=== PATIENT | female | born 1965 | race Caucasian/White ===

== ENCOUNTER 2022-08-04 09:48 | Emergency (ER) | payer BC, SELFPAY ==
[2022-08-04 09:55] VITALS: BP 135/76; PULSE 97; RESP 18; O2SAT 97; BMI 26.3
--- NOTE | 2022-08-04 10:13 | CRLHL7_ITS ---
For Patients: As a result of the Century Cures Act, medical imaging exams and procedure reports are released immediately into your electronic medical record. You may view this report before your referring provider. If you have questions, please contact your health care provider. INDICATION: Left lower quadrant abdomen and flank pain. TECHNIQUE: CT abdomen and pelvis acquired with 64 cc Isovue 370 IV contrast. COMPARISON: None. FINDINGS: Lower chest: Unremarkable. Liver: Unremarkable. Normal in size and attenuation. No suspicious masses. Gallbladder and bile ducts: Unremarkable. No stones or inflammation. No biliary dilatation. Pancreas: Unremarkable. No mass or inflammation. Spleen: Unremarkable. Normal in size. No masses. Adrenal glands: Unremarkable. No nodules. Kidneys: Staghorn calculus is present in the left renal collecting system. Left kidney is somewhat atrophic with cortical thinning, caliectasis and there is a delayed nephrogram in the left kidney. These findings are likely secondary to the chronic calculus. Right kidney is unremarkable. GI tract: Unremarkable. Normal in caliber. No sign of mass or inflammation. Vasculature: Abdominal aorta is normal in caliber. Mesenteric arteries are patent. Lymph nodes: Multiple mildly enlarged retroperitoneal lymph nodes at the level of the left kidney. No lymphadenopathy elsewhere. Peritoneum/Abdominal Wall: Unremarkable. No sign of mass or infiltration. No free air or significant free fluid. Pelvis: Unremarkable. Bones: Unremarkable for age. IMPRESSION: 1. Staghorn calculus in the left renal collecting system resulting in a delayed nephrogram and caliectasis which may be acute or chronic findings. No convincing evidence for pyelonephritis. Urology consultation recommended for management of this finding. 2. Mild left retroperitoneal lymphadenopathy at the level of the left kidney. This is of uncertain etiology and significance. 3. Remainder of exam is unremarkable. No other finding to explain left-sided abdomen or back pain. Please note that all CT scans at this facility use dose modulation, iterative reconstruction, and/or weight-based dosing when appropriate to reduce radiation dose to as low as reasonably achievable. Dictated by Lj Baez MD @ 08/04/2022 11:39:42 AM (Electronically Signed)
--- NOTE | 2022-08-04 10:15 | ED_ITS ---
HPI - General Adult General Chief complaint: Flank Pain Stated complaint: Mid/upper back pain Time Seen by Provider: 08/04/22 09:58 History of Present Illness HPI narrative: This 56-year-old female comes in reporting midback pain that was severe last evening. She has also had left lower quadrant abdominal pain on and off over the past month. She states that she had some chills but did not measure her temperature. She arrives here with normal vital signs. She states that the pain in her abdomen and back comes and goes. She does not report any symptoms of altered bowel function. She states that she has had a urinary tract infection in the past and wonders if this may explain her current symptoms. She is also had an ovarian cyst in the past. Related Data Allergies Allergy/AdvReac Type Severity Reaction Status Date / Time acetaminophen [From Vicodin] Allergy Verified 08/04/22 09:54 hydrocodone [From Vicodin] Allergy Verified 08/04/22 09:54 Review of Systems Status of ROS: Reports: 10 or more systems reviewed and unremarkable except as noted in History and below Narrative: Constitutional: No fevers, no weight gain or loss. Eyes: No discharge. No vision changes. HENT: No congestion, no sore throat, no ear pain. Cardiovascular: No chest pain, no palpitations. Respiratory: No shortness of breath, no wheezes, no cough. Gastrointestinal: No vomiting, no diarrhea. Left lower quadrant abdominal pain. Genitourinary: No dysuria, no hematuria. Musculoskeletal: Normal range of motion. Skin: No rashes, no pruritis. Neurological: No dizziness, weakness, sensory change, speech change. Endo/Heme/Allergies: No bruising or bleeding. No polydipsia. Pysch: no suicidality, no anxiety, no insomnia. All other systems reviewed and are negative. PFSH PFS Social History Smoking Status: Smoker, status unknown Do you use any of these nicotine containing products: None Second hand tobacco smoke exposure: No How often do you have a drink containing alcohol: monthly or less How many standard drinks containing alcohol do you have on a typical day: 1 or 2 How often do you have six or more drinks on one occasion: Never AUDIT-C Alcohol total score: 1 Non-prescribed substance use: marijuana (any form) Non-prescribed substance use details: medical cannabis service: No Exam Narrative: Exam Narrative: Constitutional: Well-developed, well-nourished, no acute distress. HEENT: Normocephalic, atraumatic. Neck: Normal range of motion. Nontender. Supple. Heart: Regular. No murmurs. Normal rate. Intact distal pulses. Lungs: Clear to auscultation. No chest discomfort. No wheezes, rhonchi, or rales. Abdomen: Normal bowel sounds. Nontende to deep palpation. She does report pain in the left lower quadrant. No rebound tenderness. Genitalia: Deferred. Back: No midline tenderness. Normal range of motion. Extremities: Normal range of motion. No injury. Skin: Intact. No rash. Warm. No erythema or pallor. Neurologic: No altered sensation. No weakness. Alert and oriented. Psychiatric: No suicidality. No anxiety or depression. No insomnia. Nursing notes and vitals signs are reviewed. Const: Vital Signs, click to edit/add: Vital Signs - 24 hr 08/04/22 09:55 Pulse Rate [Pulse Oximeter] 97 Respiratory Rate 18 Blood Pressure [Ri ght Upper Arm] 135/76 Pulse Oximetry 97 Oxygen Delivery Me thod Room Air Course Vital Signs Vital signs: Initial Vital Signs Temperature Source Temporal Artery Scan 08/04/22 09:55 Pulse Rate 97 08/04/22 09:55 Respiratory Rate 18 08/04/22 09:55 Blood Pressure 135/76 08/04/22 09:55 Blood Pressure Mean 95 08/04/22 09:55 Blood Pressure Position Supine 08/04/22 09:55 Pulse Oximetry 97 08/04/22 09:55 Oxygen Delivery Method 08/04/22 09:55 Vital Signs Pulse Rate 97 08/04/22 09:55 Respiratory Rate 18 08/04/22 09:55 Blood Pressure 135/76 08/04/22 09:55 Pulse Oximetry 97 08/04/22 09:55 Oxygen Delivery Method 08/04/22 09:55 Pulse Rate 97 08/04/22 09:55 Respiratory Rate 18 08/04/22 09:55 Blood Pressure 135/76 08/04/22 09:55 Pulse Oximetry 97 08/04/22 09:55 Oxygen Delivery Method 08/04/22 09:55 Medical Decision Making MDM Narrative Medical decision making narrative: This patient comes in with left flank pain as described above. An IV is established where she did receive 30 mg of Toradol. Labs were drawn and urinalysis acquired. CT imaging of the abdomen and pelvis shows a large staghorn calculus in the left kidney. There are no other findings on the images that are remarkable. She has normal blood results but does show obvious findings of urinary tract infection. She received a prescription for Keflex, Toradol, and a few tablets of Percocet. She states that she is taking Percocet regularly for her chronic pain issue but has accelerated taking these a bit over the past few days with these current symptoms. I stated that she will need to have that managed by her primary physician. Radiologist recommends follow-up with urology clinic. A phone number is provided for this to occur. Lab Data Labs: Lab Results 08/04/22 08/04/22 08/04/22 Range/Units 10:35 10:35 11:00 WBC 8.55 (4.50-11.00) K/uL RBC 4.21 (4.00-5.20) m/uL Hgb 11.1 L (12.0-16.0) gm/dL Hct 34.0 (33.0-51.0) % MCV 81 (80-100) fL MCH 26 (26-34) pg MCHC 33 (32-36) gm/dL RDW Coeff of Kathryn 13.3 (11.5-15.5) % Plt Count 328 (140-440) K/uL Neut % (Auto) 81.8 H (42.0-72.0) % Lymph % (Auto) 10.4 L (20-44) % [place] % (Auto) 6.7 (0.0-11.0) % Eos % (Auto) 0.2 (0.0-7.0) % Baso % (Auto) 0.5 (0.0-3.0) % Neut # (Auto) 7.00 (1.7-7.0) K/uL Lymph # (Auto) 0.90 (0.90-2.90) K/uL [place] # (Auto) 0.60 (0.00-0.90) K/UL Eos # (Auto) 0.02 (0.00-0.50) K/uL Baso # (Auto) 0.04 (0.00-0.30) K/uL Abs Immat Gran (auto) 0.03 (0.00-0.30) K/uL Sodium 134 L (135-149) mmol/L Potassium 4.4 (3.6-5.1) mmol/L Chloride 100 (96-114) mmol/L Carbon Dioxide 25 (20-32) mmol/L BUN 14 (7-30) mg/dL Creatinine 0.8 (0.5-1.5) mg/dL Estimated Creat Clear 74.83 Estimated GFR 88 ml/min Glucose 107 (60-115) mg/dL Calcium 9.4 (8.4-10.6) mg/dL Urine Color Yellow (Yellow) Urine Appearance Slightly Cloudy A (Clear) Urine pH 7.0 (5.0-8.5) Ur Specific [place] 1.010 (1.000-1.030) Urine Protein Trace A (Negative) Urine Glucose (UA) Negative (Negative) Urine Ketones Negative (Negative) Urine Blood 2+ A (Negative) Urine Nitrite Negative (Negative) Urine Bilirubin Negative (Negative) Urine Urobilinogen 0.2 (0.2-1.0) Ur Leukocyte Esterase 3+ A (Negative) Urine RBC 10-25 A (0-2) Urine WBC >100 A (0-5) Ur Squamous Epith Cells None (None-Few) Urine Bacteria Few A (None) Imaging Data CT scan - abdomen: Radiologist's impression: 1. Staghorn calculus in the left renal collecting system resulting in a delayed nephrogram and caliectasis which may be acute or chronic findings. No convincing evidence for pyelonephritis. Urology consultation recommended for management of this finding. 2. Mild left retroperitoneal lymphadenopathy at the level of the left kidney. This is of uncertain etiology and significance. 3. Remainder of exam is unremarkable. No other finding to explain left-sided abdomen or back pain. Discharge Plan Discharge Clinical Impression: Urinary tract infection, Staghorn calculus Patient Disposition: Home, Self-Care Condition: Stable Additional Instructions: Take medication as prescribed. Follow-up with urology clinic. [facility] at [phone] for follow up appointment. Follow Up/Referrals: Provider,Not a Local [Referring] - Stand Alone Forms: [employer] Info Instructions
--- OUTSIDE RECORDS SUMMARY | 2022-08-04 10:29 | XMS_ITS | Clinical Summary ---
:1965 Author Organization [facility] [place] [address] Care Team Providers Name Role Phone Jennifer Romano Primary Care Provider [phone] Lili Gaytan MD Unavailable Allergies Active Allergy Reactions Severity Noted Date Comments Meclizine 09/17/2007 scalp tingling Etanercept Rash 08/15/2010 Leg swelling. Hydrocodone-Acetaminophen 2007 na usea/vomiting Medications Medication Sig Dispensed Refills Start Date End Date Status tacrolimus 0.03% Apply topically 1 Tube 0 03/11/2016 Active (PROTOPIC) 0.03 % to affected ointmentIndications: area(s) 2 times Psoriasis daily. oxyCODONE-acetaminoph Take 1 tablet by 0 07/03/2019 Active en, 10-325 mg, mouth every 6 (PERCOCET) 10-325 mg hours if needed per tablet for Pain tiZANidine (ZANAFLEX) 1 tablet every 8 0 10/28/2019 Active 4 mg tablet hours if needed. Lysine 1,000 mg Take 1,000 mg by 0 Active tablet mouth once daily. desonide 0.05% Apply topically 60 g 1 05/01/2020 Active (TRIDESILON 0.05% to affected CREAM) 0.05 % area(s) 2 times creamIndications: daily. Psoriasis celecoxib (CELEBREX) Take 1 Capsule 180 capsule. 2 11/19/2021 Active 200 mg (200 mg) by mouth capsuleIndications: 2 times daily Arthralgia, with meals. unspecified joint valACYclovir Take 1 tablet 20 Tablet 2 01/24/2022 Ac tive (VALTREX) 1 gram twice daily x 2 tabletIndications: days for cold Cold sore sore outbreak secukinumab (Cosentyx Inject 1 mL (150 3 mL 1 03/04/2022 Active Pen) 150 mg/mL mg) subcutaneous penIndications: every 4 weeks. Ankylosing spondylitis of multiple sites in spine (HC), Psoriasis oxybutynin XL TAKE 2 TABLETS 180 Tablet 3 04/15/2022 Active (DITROPAN XL) 10 mg ONCE DAILY CR tabletIndications: Mixed stress and urge urinary incontinence sertraline (ZOLOFT) TAKE ONE AND 135 Tablet 1 04/15/2022 Active 100 mg ONE-HALF TABLETS tabletIndications: EVERY MORNING Anxiety omeprazole (PRILOSEC) TAKE 1 CAPSULE 90 Capsule 2 04/15/2022 Active 20 mg Delayed-Release DAILY BEFORE A capsuleIndications: MEAL Gastroesophageal reflux disease with esophagitis without hemorrhage cyclobenzaprine Take 1 Tablet (10 20 Tablet 0 04/26/2022 Active (FLEXERIL) 10 mg mg) by mouth 2 tabletIndications: times daily if Muscle cramp needed for Muscle Spasm. Active Problems Problem Noted Date Special screening for malignant neoplasms, colon 12/06 Medical cannabis use 01/19/2017 Female sexual dysfunction 01/21/2013 Pain medication agreement 09/06/2012 Tension headache 07/02/2010 Myopia 02/23/2010 Encounter for long-term (current) use of high-risk med ication 11/27/2009 Melanoma in situ of torso excluding breast 10/03/2007 Ankylosing spondylitis 09/17/2007 Other psoriasis 09/17/2007 Overview: head Reflux esophagitis 09/17/2007 Encounters Date Type Specialty Care Team Description 06/20/2022 Telephone Lili Gaytan MD Prior Authorization (secukinumab (C osentyx Pen) 150 mg/mL pen Appro ryanne 05/21/2022-06/09) from Last 3 Months Immunizations Name Administration Dates Next Due AMB Influenza, IIV3 (Age >=3 08/30/2013 years)(Flu Clinic Only) COVID-19 vaccine ([employer] 01/31/2022 30mcg/0.3mL) 12YO+ MARU-SUCROSE PF, MDV COVID-19 vaccine ([employer] 02/04/2021, 01/14/2021 30mcg/0.3mL) PF, MDV Hepatitis A (Adult) 04/16/2009, 10/15/2008 Influenza, IIV3 (Age >=3 years) 08/30/2013, 07/30/2010, 02/2009, 08/25/2008 Influenza, IIV4 07/03/2019, 07/18/2018, 08/15/2016, 06/17/2015 Influenza,CCIIV4 PRESERV FREE 07/01/2020 Pneumococcal Poly,23-Valent 08/25/2008 (Pneumovax) Td (Age >=7 Years) 05/03/2006 Tdap 12/23/2011, 05/03/2006 Tuberculin (PPD) 07/11/2008 Zoster (Shingrix-RZV, recombinant) 03/29/2022, 01/24/2022 Family History Medical History Relation Name Comments Diabetes Father Heart Disease Father at 63 Other Father Blindness from d gregorio Cancer Maternal Grandmother liver--? pr imary Hypertension Mother Thyroid Disease Mother Hypertension Sister Cancer-breast No Family History Relation Name Status Comments Father Maternal Grandmother Mother Sister Social History Tobacco Use Types Packs/Day Years Used Date Former Smoker Quit: 10/09/19 03 Smokeless Tobacco: Never Used Tobacco Cessation: Counseling Given: Yes Alcohol Use Standard Drinks/Week Comments Yes 0 (1 standard drink = 0.6 oz pure alcoho l) Drinks about 4x per year. Alcohol Habits Answer Date Recorded How often do you have a drink containing Not asked alcohol? How many drinks containing alcohol do you Not asked have on a typical day when you are drinking? How often do you have six or more drinks on Not asked one occasion? Comment: Drinks about 4x per year. 12/17/2014 Sex Assigned at Date Recorded Not on file Obstetrics History Para Term AB IAB SAB Ectopic Multiple Living Live Births 3 0 3 3 Date Outcome GA Total Labor/2nd/3rd Weight Sex Delivery Anes PTL Precious A 1 A5 Name Clin Labor SAB SAB SAB Last Filed Vital Signs Vital Sign Reading Time Taken Comments Blood Pressure 125/76 04/15/2022 3:29 PM CDT Pulse 66 04/15/2022 3:29 PM CDT Temperature 37.1 ??C (98.8 ??F) 11/08/2021 3:02 PM LIFE EDUCATOR Respiratory Rate 12 03/25/2022 1:43 PM CDT Oxygen Saturation 97% 04/15/2022 3:29 PM CDT Inhaled Oxygen Concentration - - Weight 59.3 kg (130 lb 12.8 oz) 04/15/2022 3:29 PM CDT Height 150 cm (4' 11.06) 02/16/2022 3:30 PM CDT Body Mass Index 26.37 02/16/2022 3:30 PM CDT Plan of Treatment Upcoming Encounters Date Type Specialty Care Team Description 08/17/2022 Office Visit Jennifer Romano PA [address] [place] 5 [phone] (Wo rk) 09/16/2022 Office Visit Leni Gaytan MD [address] [facility] [address] [place], [place] [address] (Wo rk) Health Maintenance Due Date Last Done Comments Tetanus booster 12/22/2021 12/23/2011, 05/03/2006, 05/03/2006 COVID-19 vaccine series (4 - 03/28/2022 01/31/2022, 021, Booster for Pfizer series) 01/14/2021 Influenza for age 50-64 06/09/2022 07/01/2020, 07/03/2019, 07/18/2018, Additional history exists Depression screening for age 12+ 11/25/2022 11/25/2021, , 11/08/2021, Additional history exists Mammogram for age 45-75 01/10/2023 01/10/2022, 11/10/2020, 11/06/2019, Additional history exists BMI (ht and wt on same day) for 02/16/2023 02/16/2022, 01/07, age 18+ 11/10/2020, Additional history exists Fecal testing non-DNA 02/19/2023 02/19/2022, 03/06/2019 (FIT,FOBT,iFOBT) for age 45-75 Pap test for age 21-65 11/10/2023 11/10/2020, 08/18/2017, 08/18/2017, Additional history exists Lipids for age 45-75 02/16/2027 02/16/2022, 11/10/2020, 10/06/2017, Additional history exists Tdap Completed 12/23/2011, 05/03/2006 Hepatitis C screening for age Completed 06/18/2021 18-79 Zoster (shingles) series for age Completed 03/29/2022, 50+ Results Not on filefrom Last 3 Months Insurance Payer Benefit Plan / Subscriber ID Effective Dates Phone Addre ss Type Group [employer] [id number] 2021-Pres [address] [place] [address] WC WORKERS [employer] TRAV[employer] [id number] 2020-Prese [address] [place] [address] BLUE CROSS BLUE CROSS OF [id number] 2021-Presen [address] [address] [place] [address] (Work) [id number] Radha Oconnell Workers Comp Self 1965 [id number] [phone] [place], [place] (Work) [id number] Radha Oconnell Motor Vehicle Self 1965 [address] [phone] [place], [place] (Work) [id number] USPS ESCREEN [facility] Employer 10/09/[address] [address] [address] (Home) [place] [phone] [place] [address] x5 (Work) Advance Directives Latest Code Status on File Code Status Date Activated Date Inactivated Comments Full Code 12/06/2019 9:53 AM 12/06/2019 2:49 PM Code Status Discussion: Discussed Full Code 10/03/2014 11:36 AM 10/03/2014 8:07 PM Care Teams Gate Person Relationship Specialty Start Date End Date Jennifer Romano PA PCP - General Family Practice 02/14/[address] [place] [address] Lili Gaytan MD Rheumatology Rheumatology 03/31/17 [address] [facility] [address] [place] [address]
[2022-08-04 10:42] LABS: Basophils Absolute Auto 0.04 K/uL (0.00-0.30); Basophils Percent Auto 0.5 % (0.0-3.0); Eosinophils Absolute Auto 0.02 K/uL (0.00-0.50); Eosinophils Percent Auto 0.2 % (0.0-7.0); Hemoglobin* 11.1 gm/dL (12.0-16.0); Immature Granulocytes Abs Auto 0.03 K/uL (0.00-0.30); Lymphocytes Percent Auto 10.4 % (20-44); Mean Corpuscular HGB Conc 33 gm/dL (32-36); Mean Corpuscular Hemoglobin 26 pg (26-34); Mean Corpuscular Volume 81 fL (80-100); Monocytes Percent Auto 6.7 % (0.0-11.0); Neutrophils Percent Auto 81.8 % (42.0-72.0); Platelet Count* 328 K/uL (140-440); RDW Coefficient of Variation % 13.3 % (11.5-15.5); Red Blood Count 4.21 m/uL (4.00-5.20); White Blood Count* 8.55 K/uL (4.50-11.00)
[2022-08-04 10:43] LABS: Slide Review Reflex No
[2022-08-04 10:54] LABS: Chloride* 100 mmol/L (96-114)
[2022-08-04 10:55] LABS: Potassium* 4.4 mmol/L (3.6-5.1); Sodium* 134 mmol/L (135-149)
[2022-08-04 10:57] LABS: Creatinine* 0.8 mg/dL (0.5-1.5); Est. Creatinine Clearance* 74.83; Estimated Glomerular Filt Rate 88 ml/min
[2022-08-04 10:58] LABS: Blood Urea Nitrogen* 14 mg/dL (7-30); Calcium* 9.4 mg/dL (8.4-10.6); Carbon Dioxide* 25 mmol/L (20-32); Glucose* 107 mg/dL (60-115)
[2022-08-04 11:22] LABS: Appearance Urine Slightly Cloudy (Clear); Bilirubin Urine Negative (Negative); Blood Urine 2+ (Negative); Color Urine Yellow (Yellow); Glucose Urine Negative (Negative); Ketones Urine Negative (Negative); Leukocyte Esterase Urine 3+ (Negative); Nitrite Urine Negative (Negative); Protein Urine Trace (Negative); Urobilinogen Urine 0.2 (0.2-1.0)
[2022-08-04] MEDS: KETOROLAC 30 MG/ML inj IVP (11:27)
[2022-08-04 12:07] LABS: WBC Urine >100 (0-5)
[2022-08-04 12:08] LABS: Bacteria Urine Few
[2022-08-04 12:33] VITALS: BP 135/76; PULSE 97; RESP 18; TEMP 36.4
== END 2022-08-04 12:39 | disposition home or self-care (01) ==
PROVIDERS: Emergency Provider Emergency Medicine Emergency Medical Services; PCP Physician Assistant Medical
DX: N39.0 Urinary tract infection, site not specified (principal); N20.0 Calculus of kidney
CPT/HCPCS: 36415; 74177; 80048; 81001; 85025; 87086; 87186; 96374; 99284; 99285; J1885; Q9967

== ENCOUNTER 2022-08-25 09:52 | Outpatient (CLI) | payer BC, SELFPAY ==
--- OUTSIDE RECORDS SUMMARY | 2022-08-25 09:54 | XMS_ITS | Encounter Summary ---
:1965 Author Care Team Providers Name Role Phone Jennifer Juan Antonio BRITT Primary Care Provider [phone] Dom Bellamy MD Referring Provider [phone] Reason for Visit Kidney Stones Assessment and Plan 1. Kidney stone CT from 08/04/22 notable for left stagh orn calculus with renal atrophy/cortical thinning Will have images from [facility] pushed to Alexey QURESHI for review Obtain renogram next to further evaluati on functionality of kidney- discussed she may need PCNL vs nephrectomy based on findings. Will review with MD once renogram is completed. ? urinalysis, dipstick ? NM, kidney scan - LASIX RENOGRAM - pl ease administer Lasix per your standard protocol. ? medical record request* Discussion Note: None recorded.Patient educational handouts: No information available. Plan of Care Reminders Provider Appointments None recorded. ? ? Lab Urinalysis, Dipstick 08/18/2022 [facility] Referral None recorded. ? ? Procedures None recorded. ? ? Surgeries None recorded. ? ? Imaging NM, Kidney Scan 08/18/2022 [facility] Radiology Department Medications Name Start Date ? ? celecoxib 200 mg capsule ? Cosentyx Pen 150 mg/mL subcutaneous ? cyclobenzaprine 10 mg tablet ? omeprazole 20 mg capsule,delayed release ? oxybutynin chloride ER 10 mg tablet,extended release 2 4 hr ? oxycodone-acetaminophen 10 mg-325 mg tablet 08/18/2022 TAKE 1 TABLET BY MOUTH EVERY 4 TO 6 ELVIS RS NEEDED FOR CHRONIC PAIN. MAX 5 PER DAY sertraline 100 mg tablet ? TAKE 1 TABLET BY MOUTH EVERY MORNING tizanidine 4 mg tablet ? TAKE 1 TABLET BY MOUTH EVERY 8 HOURS NEEDED Medications Administered None recorded. Vitals Height Weight BMI 5 ft 135 lbs 26.4 kg/m2 Results Lab Results Date Name Specimen Result Interpretation Description Value Range Status Address ? 08/18/2022 Urinalysis, ? pH-Status 6.0 ? ? [facility]: [address] [place] ? ? ? Blood-Status Moderate ? ? [facility]: [address] ? ? ? Leuko-Status Large ? ? [facility]: [address] Allergies Code Code System Name Reaction Severity Onset Vicodin ? ? ? Problems None recorded. Procedures Date Name Performed by ? ? Procedure on Nose Information not avai lable ? Wrist Repair Information not avai lable ? Appendectomy Information not avai lable ? Shoulder Joint Surgery Information not a vailable 08/18/2022 NM, Kidney Scan [facility] Radiology Department [address] [place] [address] (Work Place) Vaccine List None recorded. Social History Tobacco Smoking Status Former Smoker What was the date of your most recent tobacco 08/18/2022 screening? What is your level of alcohol consumption? Occasional What is your level of caffeine consumption? Heavy When did you quit smoking? 16+yearssincelastcigarette Family History Relation Problem Onset Age of Age Notes Father Family history of diabetes (No Information) N/A (No Notes) mellitus Mother Family history of diabetes (No Information) N/A (No Notes) mellitus Mother Family history of Hypertension (No Information) N/A (No Notes) Functional Status Unknown. Past Encounters 08/18/2022 Kidney Stone [facility]: [address] [place] [address], Ph. History of Present Illness Note: <div>56yo female here today for further evaluation of staghorn renal calculus noted on CT from [place]. She notes left flank pain into the front of her abdomen and suprapubic area which started approx 3mo ago. No episodes of gross hematuria. Has never passed stones in the past. She has been taking oxycodone for the pain. </div><div>
</div><div>No hx of rUTIs. </div><div>
</div><div>CT abd/pelvis w contrast from 08/04/22: (I am unable to access the images for review)</div><div>staghorn calculus noted within left r enal collecting system, concern for left renal atrophy with cortical thinning and delayed nephrogram</div><div>unremarkable right kidney </div><div>
</div><div>UA mod blood, large leuk </div> Review of Systems ? Comprehensive General Adult ROS Reported By: Patient Constitutional: Constitutional: no fever, no chills Eyes: Eyes: no dry eyes, no vision change, no irritation Endocrine: Endocrine: no fatigue, no in creased thirst Cardiovascular: Cardiovascular: no chest jaki n, no palpitations Integumentary: Skin: no rashes, no change i n skin color Respiratory: Respiratory: no wheezing, no cough, no shortness of breath Gastrointestinal: Gastrointestinal: no abdomin al pain, no nausea, no vomiting, no constipation, no GERD Musculoskeletal: Musculoskeletal: no neck jaki n, no back pain Neurologic: Neurologic: no tremor, no di zziness, no numbness, no headaches Genitourinary: Genitourinary: no incontinen ce, no difficulty urinating ENMT: Ears: no ear pain. Mouth/Thr oat: no sore throat Allergic/Immunologic: Allergy/Immunologic: no itch ing, no hives Hematologic/Lymphatic: Hematologic/Lymphatic no swo llen glands, no excessive bleeding Psychiatric: Psych: no hallucinations, (n ormal) sleep disturbances: mismatch of sleep / wake aimee edule with lifestyle needs Physical Exam ? Notes: <div>Constitutional: general ly well appearing, NAD</div><div>Eyes: no icterus</div><div>ENT: normo cephalic, atraumatic </div><div>Respiratory: breathing unlabored </div><d iv>Cardiovascular: chest wall symmetric </div><div>GI: abd soft, NT, ND</div><div>Back/Flank: left CVAT, no right CVAT</div><div>Skin: well pe rfused </div><div><div>Musculoskeletal: moves all extremities</div><div>
</ div></div><div>Neurologic: no focal deficits </div><div>Neuropsychiatric: A&Ox3</div>
--- OUTSIDE RECORDS SUMMARY | 2022-08-25 09:54 | XMS_ITS ---
:1965 Author Care Team Providers Name Role Phone HUE HICKS MD Referring Provider [phone] GERBER BRITT Primary Care Provider [phone] Allergies Code Code System Name Reaction Severity Status Onset Vicodin ? ? Active ? Medications Name Status Start Date Stop Date ? ? amoxicillin 875 mg-potassium clavulanate 125 mg tablet Completed ? 08/18/2022 TAKE 1 TABLET BY MOUTH TWICE DAILY WITH MEALS FOR 7 DAYS cefdinir 300 mg capsule Completed ? 08/18/20 22 celecoxib 200 mg capsule Active ? Not wilmer ilable cephalexin 500 mg capsule Completed ? 2021 TAKE 1 CAPSULE BY MOUTH THREE TIMES DAILY FOR 7 DAYS Cosentyx Pen 150 mg/mL subcutaneous Active ? Not available cyclobenzaprine 10 mg tablet Active ? Not available ketorolac 10 mg tablet Completed ? TAKE 1 TABLET BY MOUTH EVERY 8 HOURS FOR 5 DAYS metronidazole 500 mg tablet Completed ? 08/09 omeprazole 20 mg capsule,delayed release Active ? Not available oxybutynin chloride ER 10 mg tablet,extended Active ? Not available release 24 hr oxycodone-acetaminophen 10 mg-325 mg tablet Active 08/09 Not available TAKE 1 TABLET BY MOUTH EVERY 4 TO 6 ELVIS RS NEEDED FOR CHRONIC PAIN. MAX 5 PER DAY oxycodone-acetaminophen 5 mg-325 mg tablet Completed ? 08/18/2022 TAKE 1 TABLET BY MOUTH EVERY 6 HOURS NEEDED FOR PAIN sertraline 100 mg tablet Active ? Not wilmer ilable tizanidine 4 mg tablet Active ? Not avail able TAKE 1 TABLET BY MOUTH EVERY 8 HOURS NEEDED valacyclovir 1 gram tablet Completed ? 08/18 Problems None recorded. Procedures Date Name Performed by ? ? Procedure on Nose Information not avai lable ? Wrist Repair Information not avai lable ? Appendectomy Information not avai lable ? Shoulder Joint Surgery Information not a vailable 08/18/2022 NM, Kidney Scan [facility] Radiology Department [address] [place] [address] (Work Place) Results Lab Results Date Name Specimen Result Interpretation Description Value Range Status Address ? 08/18/2022 Urinalysis, ? pH-Status 6.0 ? ? [facility]: [address], [place] ? ? ? Blood-Status Moderate ? ? [facility]: [address], [place] ? ? ? Leuko-Status Large ? ? [facility]: [address], [place] 08/18/2022 Urinalysis, ? No observation ? ? ? Dipstick recorded. Past Encounters 08/18/2022 Kidney Stone [facility]: [address], [place] [address], Ph. Social History Tobacco Smoking Status Former Smoker Vaccine List None recorded. Plan of Care Reminders Provider Appointments None recorded. ? ? Lab None recorded. ? ? Referral None recorded. ? ? Procedures None recorded. ? ? Surgeries None recorded. ? ? Imaging None recorded. ? ? Vitals Height Weight BMI 5 ft 135 lbs 26.4 kg/m2
--- OUTSIDE RECORDS SUMMARY | 2022-08-25 09:55 | XMS_ITS | Clinical Summary ---
:1965 Author Organization [facility] [place] [address] Care Team Providers Name Role Phone Jennifer Romano Primary Care Provider [phone] Lili Gaytan MD Unavailable Allergies Active Allergy [...] Encounters Date Type Specialty Care Team Description 08/04/2022 Orders Only Scanner <No scans attac hed> 06/20/2022 Telephone Lili Gaytan MD Prior Authorization (secukinumab (C osentyx Pen) 150 mg/mL pen A pproved 05/21/2022-06/09) from Last 3 Months Immunizations Name Administration Dates Next Due AMB Influenza, IIV3 (Age >=3 08/30/2013 years)(Flu Clinic Only) COVID-19 vaccine (Eferio 01/31/2022 30mcg/0.3mL) 12YO+ MARU-SUCROSE PF, MDV COVID-19 vaccine (Eferio 02/04/2021, 01/14/2021 30mcg/0.3mL) PF, MDV Hepatitis A [...] at 65 Other Father Blindness from d iabetes Cancer Maternal Grandmother liver--? pr imary Hypertension [...] 37.1 ??C (98.8 ??F) 11/08/2021 3:02 PM [employer] CL[employer] Respiratory Rate 12 03/25/2022 1:43 PM CDT Oxygen Saturation 97% 04/15/2022 3:29 PM CDT Inhaled Oxygen Concentration - - Weight 59.3 kg (130 lb 12.8 oz) 04/15/2022 3:29 PM CDT Height 150 cm (4' 11.06) 02/16/2022 3:30 PM CDT Body Mass Index 26.37 02/16/2022 3:30 PM CDT Plan of Treatment Upcoming Encounters Date Type Specialty Care Team Description 08/25/2022 Orders Only Deisy Meneses 09/16/2022 Office Visit Leni Gaytan MD [address] [facility] [address] [facility] [address] [place] [id number] (Wo rk) Health Maintenance Due Date Last Done Comments HIV for age 15-65 1982 Tetanus booster 12/22/2021 12/23/2011, 05/03/2006, 05/03/2006 COVID-19 [...] (shingles) series for age Completed 03/29/2022, 50+ Procedures Procedure Name Priority Date/Time Associated Diagnosis Comme nts SCAN-CT INTERPRETATION 08/04/2022 12:00 AM CDT from Last 3 Months Results SCAN-CT INTERPRETATION (08/04/2022 12:00 AM CDT) Narrative This result has an attachment that is no t available. Scanner OTHER from Last 3 Months Insurance Payer Benefit Plan / Subscriber ID Effective Dates Phone Addre ss Type Group [employer] [id number] 2021-Pres [address] [place] [address] WC WORKERS WC TRAVEL[employer] [id number] 2020-Prese [address] [place] [address] [employer] OF [id number] 2021-Presen [address] [address] [place] [address] (Work) [id number] Radha Oconnell Workers Comp Self 1965 [id number] [phone] [place], [place] (Work) [id number] Radha Oconnell Motor Vehicle Self 1965 [address] [phone] [place] (Work) [address] [employer] ESCREEN [facility] Employer 10/09/[address] [phone] ([address]) [place] [phone] [place] [address] x5 (Work) Advance Directives Latest Code Status on File Code Status Date Activated Date Inactivated Comments Full Code 12/06/2019 9:53 AM 12/06/2019 2:49 PM Code Status Discussion: Discussed Full Code 10/03/2014 11:36 AM 10/03/2014 8:07 PM Care Teams Desk Operator Relationship Specialty Start Date End Date Jennifer Romano PA PCP - General Family Practice 02/14/14 [address] [place] [address] Lili Gaytan MD Rheumatology Rheumatology 03/31/17 [address] [facility] [address] [place] [address]
--- NOTE | 2022-08-25 10:00 | CRLHL7_ITS ---
For Patients: As a result of the Century Cures Act, medical imaging exams and procedure reports are released immediately into your electronic medical record. You may view this report before your referring provider. If you have questions, please contact your health care provider. History: 57-year-old female. Calculus of left kidney. Flank and suprapubic pain for 3 months. TECHNIQUE: 7.9 millicuries of [id number] 3 was injected intravenously. Images of the kidneys, ureters and bladder were obtained in the posterior projection for 40 minutes. 20 mg IV Lasix was administered care home through the examination. FINDINGS: The right kidney demonstrates good blood flow with good extraction and excretion and no evidence for obstruction. The left kidney demonstrates severely decreased blood flow and function. The left renal time activity curve is low and flat. Split renal function calculations demonstrate approximately 91.7 percent of function in the right kidney and 8.3 percent in the left kidney. IMPRESSION: 1. The right kidney demonstrates good blood flow and function and no evidence for obstruction. 2. The left kidney demonstrates severely decreased blood flow and function. 3. Approximately 91.7 percent of overall renal function is in the right kidney and 8.3 percent in the left kidney. Dictated by Hubert Albarado MD @ 08/25/2022 2:55:09 PM (Electronically Signed)
== END 2022-08-25 09:53 | disposition home or self-care (01) ==
LOC: NM 09:53
PROVIDERS: PCP Physician Assistant Medical; Visit Provider Physician Assistant
DX: N20.0 Calculus of kidney (principal)
CPT/HCPCS: 78708; A9562; J1940